=== PATIENT | male | born 1970 | race African-American/Black ===

== ENCOUNTER 2025-04-30 16:13 | Emergency (ER) | payer MEDICAID ==
[~2025-04-30] VITALS: Ht 172.7 cm; Wt 100.0 kg
--- NOTE | 2025-04-30 16:51 | Physician Documentation ---
History of Present Illness ~ Chief Complaint: Vomiting Stated Complaint: NAUSEA Time Seen by MD: 17:31 HPI This is a 54-year-old male with a history of CAD and hypertension who presents with one day of persistent nausea and vomiting, patient reports no chest pain or shortness breath and reports no other acute symptoms or concerns. To patient's they were [place] from we have reveal when her began having nausea and vomiting. She adds that he takes several cardiac meds and he took them without food prior to him experiencing nausea vomiting Medication Reconciliation Allergies: Coded Allergies: No Known Allergies (Unverified , 04/30/25) Review of Systems All Other Systems at this time: Reviewed and Negative ROS As stated above in the HPI, otherwise all systems are reviewed and negative. Physical Exam Vital Signs: Temperature: 97.8, Source: Temporal, Heart Rate: 80, Respiratory Rate: 16, BP: 200/111, Pulse Oximetry: 99, Weight: 100.000 Physical Exam VITALS: Reviewed and as above. GENERAL: Alert, nontoxic appearing, no apparent distress. HEENT: RESPIRATORY: No increased work of breathing, no respiratory distress, speaking in full clear sentences CHEST: CV: normal sinus rhythm BACK: GI: nontender, wretching MUSCULOSKELETAL: SKIN: NEURO: PSYCH: Progress Results/Orders Results/Orders Completed Orders - MARK PINEDA TRASHMAN Ondansetron Inj. (Zofran 4mg/2ml Vial) (04/30/25 17:40) Ondansetron Disint. Tablet (Zofran Odt T (04/30/25 17:55) Medications Received in ER Medications (Trade) Dose Ordered Sig/Eunice Route PRN Reason Start Time Stop Time Status Last Admin Dose Admin (Zofran ODT tablet) 4 mg ONCE ONCE PO 04/30/25 17:55 04/30/25 17:56 DC 04/30/25 17:57 4 MG Vital Signs 04/30/25 04/30/25 04/30/25 16:21 17:46 17:52 Temp 97.8 Pulse 80 62 Resp 16 17 18 B/P (MAP) 200/111 150/101 (117) Pulse Ox 99 100 O2 Flow Rate 0 Laboratory Tests Test 04/30/25 17:10 White Blood Count 9.0 Red Blood Count 4.88 Hemoglobin 14.2 Hematocrit 43.2 Mean Corpuscular Volume 88.6 Mean Corpuscular Hemoglobin 29.2 Mean Corpuscular Hemoglobin Concent 32.9 L Red Cell Distribution Width 14.6 H Platelet Count 261 Mean Platelet Volume 7.2 L Neutrophils (%) (Auto) 83.8 H Lymphocytes (%) (Auto) 10.5 L Monocytes (%) (Auto) 4.9 Eosinophils (%) (Auto) 0.1 Basophils (%) (Auto) 0.7 Neutrophils # (Auto) 7.5 Lymphocytes # (Auto) 0.9 L Monocytes # (Auto) 0.4 Eosinophils # (Auto) 0.0 Basophils # (Auto) 0.1 CBC Comment Sodium Level 143 Potassium Level 4.3 Chloride Level 108 H Carbon Dioxide Level 28.6 Anion Gap 6 L Blood Urea Nitrogen 8 Creatinine 0.80 Estimated GFR/1.73 m2 > 90 BUN/Creatinine Ratio 10.0 Glucose Level 109 H Calcium Level 9.3 Total Bilirubin 0.3 Aspartate Amino Transf (AST/SGOT) 22 Alanine Aminotransferase (ALT/SGPT) 31 Alkaline Phosphatase 101 Total Protein 7.8 Albumin 4.1 Globulin 3.7 Albumin/Globulin Ratio 1.1 Lipase 50 Chemistry Comments Medical Decision Making Findings MSE performed in triage and patient returned to ED lobby by nursing staff to await available ED room This very pleasant 54-year-old male reported improved symptoms after a single dose of ODT Zofran. He is laboratory values do not show any signs of cardiac events noted that his EKG. Does have a history of [place] in his being followed in his hometown [place]. Also states he had a recent stress test which he is awaiting results on. He has he has a follow up appointment with his primary care tomorrow. We discussed his nausea which he reports actually being intermittent over the last month. I am going to send him a script of Zofran and have him report his visit today to his primary care and request further evaluation Departure Disposition: HOME / SELF CARE / HOMELESS Impression: Primary Impression: Vomiting Condition: Stable Discharge Instructions: Nausea and Vomiting, Adult Referrals: NO PRIMARY CARE PROVIDER (PCP) Prescriptions ONDANSETRON ODT 4mg tablet (ONDANSETRON ODT) 4 Mg Tab.rapdis 1 TAB PO Q6H PRN PRN for nausea/vomiting for 4 Days, #16 TAB 0 Refills Prov: MARK PINEDA TRASHMAN 04/30/25 Signature Scribe Signature: cf Attestation: Scribed for Mark Pineda Np by Mark Pearson NP . 04/30/25 18:38 MIGUEL DODD Apr 30, 2025 16:51 MARK PINEDA NP Apr 30, 2025 17:46
--- NOTE | 2025-04-30 17:01 | ELECTROCARDIOGRAPH REPORT ---
[facility] Test Date: 2025-04-30 Test Time: 16:59:19 Pat Name: ANGELA MEI Department: [facility] Patient ID: [id number] Room: Gender: M Student Development Specialist: : [id number] Requested By: MIGUEL DODD Order Number: [id number] Reading MD: Measurements Intervals [place] Rate: 73 P: 63 MO: 152 QRS: -10 QRSD: 98 T: 35 QT: 375 QTc: 414 Interpretive Statements Sinus rhythm Borderline low voltage, extremity leads ST elevation, consider inferior injury Baseline wander in lead(s) II,III,aVF Please click the below link to view image of tracing.
[2025-04-30 17:20] LABS: MEAN PLATELET VOLUME 7.2 FL (7.4-10.4); RED CELL DISTRIBUTION WIDTH 14.6 % (11.5-14.5)
[2025-04-30 17:36] LABS: CREATININE 0.80 MG/DL (0.60-1.10); TOTAL CARBON DIOXIDE 28.6 MMOL/L (24-32); eCRCL 100 ML/MIN; eGFR > 90 ML/MIN
[2025-04-30] MEDS ORDERED: ondansetron/PF 4mg/2ml inj IM ONE (17:40)
[2025-04-30] MEDS: ondansetron 4mg rapidly disintigrating tab PO ONE (17:57)
[2025-04-30] MEDS ORDERED: ONDA-243 PO (18:38)
[2025-04-30 18:43] LABS: LEUKOCYTE ESTERASE ,URINE NEGATIVE (Neg); NITRITES, URINE NEGATIVE (Neg); OCCULT BLOOD,URINE NEGATIVE (Neg)
[2025-04-30 18:48] LABS: UA COLLECTION TYPE VOIDED
[2025-04-30 18:53] VITALS: BP 156/78; PULSE 78; RESP 16; TEMP 97.8; O2SAT 98
== END 2025-04-30 18:55 | disposition home or self-care (01) ==
LOC: ER 16:14
DX: R11.10 Vomiting, unspecified (principal); I25.10 Atherosclerotic heart disease of native coronary artery without angina pectoris; I10 Essential (primary) hypertension
CPT/HCPCS: 36415; 80053; 81003; 83690; 85025; 93005; 99284